=== PATIENT | female | born 1945 | race Caucasian/White ===

== ENCOUNTER 2017-09-25 16:43 | Emergency (ER) | payer OTHER ==
[~2017-09-25] VITALS: Ht 154.9 cm; Wt 59.0 kg
[~2017-09-25 16:43] MED LIST: AVALIDE 300-251 TAB
== END 2017-09-25 21:21 | disposition home or self-care (01) ==
LOC: ER 16:43
DX: S00.83XA Contusion of other part of head, initial encounter (principal); S80.02XA Contusion of left knee, initial encounter; S70.02XA Contusion of left hip, initial encounter; M12.562 Traumatic arthropathy, left knee; W18.09XA Striking against other object with subsequent fall, initial encounter; Y93.89 Activity, other specified; Y92.480 Sidewalk as the place of occurrence of the external cause; Y99.8 Other external cause status

== ENCOUNTER 2018-08-05 18:21 | Inpatient (IN) | payer OTHER ==
[~2018-08-05] VITALS: Ht 154.9 cm; Wt 59.0 kg
--- NOTE | 2018-08-05 18:32 | NUR ---
PTE REFIERE TRIPP DOLOR ABDOMINAL SANGRADO RECTAR SE BERNARDINO S/V YS EUBICA EN AREA DE OBSERVACION
--- NOTE | 2018-08-05 20:05 | NUR ---
SE ORIENTA A PT SOBRE ORDENES MEDICAS LA CUAL REFIERE ENTENDER. SE LE COLECTAN MUESTRAS Y SE CANALIZA BAOJ MEDIDAS ASEPTICAS PT TOLERA. SE LE ADMINISTRAN MEDICAMENTOS NOAH ORDEN, PT NO PRESENTA REACCION ADVERSA AL MOMENTO. SE NOTIFICA CT.
--- NOTE | 2018-08-06 07:40 | NUR ---
SE RECIBE DE TURNO ANTERIOR EN SASHA #[id number],FEMENIA DE 73 ANOS ALERTA,ORIENTADA EN JOHNNY ESFERAS,DESCANSANDO EN CAMA NIVEL MAS BAJO,BARANDAS ELEVADAS,FRENOS,OVALLE DE IDENTIFICACION COLOCADOS POR SEGURIDAD. SE OBSERVA CON BUEN PATRON RESPIRATORIO, PIEL TIBIA AL TACTO.AREA DE VENOPUNCION LIMPIA,SECA,RENO DE S/S DE EDEMA Y/O ERITEMA. RECIBIENDO 0.9%NSS 1,000ML @150ML/HR. PENDIENTE CONSULTA CON POR DIVERTICULITIS.
[2018-08-09] MEDS ORDERED: METOPROLOL SUC100 MG PO ×2 (08:35→14:14)
[2018-08-09] MEDS ORDERED: AMLODIPINE BESYL5 MG PO ×2 (08:35→14:14)
[2018-08-09] MEDS ORDERED: CLORAZEPATE D3.75 MG PO ×2 (08:35→14:14)
[2018-08-09] MEDS ORDERED: LOSARTAN-HCTZ1 EAC1 PO ×2 (08:36→14:14)
[2018-08-09] MEDS ORDERED: QUETIAPINE FUM200 MG PO ×2 (08:36→14:14)
[2018-08-09] MEDS ORDERED: FENOFIBRATE48 MG PO ×2 (08:39→14:14)
[2018-08-09] MEDS ORDERED: CIPRO500 MG PO (14:06)
[2018-08-09] MEDS ORDERED: ZANTAC150 M3 PO (14:06)
[2018-08-09] MEDS ORDERED: ACIDOPHILUS-PE1 EAC2 PO (14:06)
[2018-08-09] MEDS ORDERED: FLAGYL500MG PO (14:06)
== END 2018-08-09 14:31 | disposition home or self-care (01) | DRG 392 ==
LOC: ER 18:21 → MEDI 08-06 13:44 → SURG 08-06 13:44 → MEDJ 08-06 16:44 → SURG 08-06 18:05
PROVIDERS: ADMIT Internal Medicine
DX: K57.32 Diverticulitis of large intestine without perforation or abscess without bleeding (principal); E87.1 Hypo-osmolality and hyponatremia; I10 Essential (primary) hypertension; F41.8 Other specified anxiety disorders; F51.04 Psychophysiologic insomnia; E86.0 Dehydration

== ENCOUNTER 2021-01-15 14:06 | Outpatient (CLI) | payer OTHER ==
[~2021-01-15 14:06] MED LIST changes: +ACIDOPHILUS-PE1 EAC2 PO; +AMLODIPINE BESYL5 MG PO; +CIPRO500 MG PO; +CLORAZEPATE D3.75 MG PO; +FENOFIBRATE48 MG PO; +FLAGYL500MG PO; +LOSARTAN-HCTZ1 EAC1 PO; +METOPROLOL SUC100 MG PO; +QUETIAPINE FUM200 MG PO; +ZANTAC150 M3 PO
== END 2021-01-15 14:07 | disposition home or self-care (01) ==
LOC: LAB 14:06
PROVIDERS: ATTEND Urology
DX: N30.00 Acute cystitis without hematuria (principal)